=== PATIENT | female | born 1960 | race Caucasian/White ===

== ENCOUNTER 2017-12-29 12:34 | Outpatient (CLI) | payer OTHER | END 2017-12-29 13:00 | disposition home or self-care (01) | LOC: NUCLEAR 12:34 | DX: M25.50 Pain in unspecified joint (principal); Z13.820 Encounter for screening for osteoporosis ==

== ENCOUNTER 2024-05-26 06:10 | Emergency (ER) | payer OTHER ==
[~2024-05-26] VITALS: Ht 162.6 cm; Wt 72.1 kg
[~2024-05-26 06:10] MED LIST: NABUMETONE750 MG PO
[2024-05-26] MEDS ORDERED: KETOROLAC TROMETHAMINE 60 MG VIAL IM STA (06:53)
[2024-05-26] MEDS ORDERED: DEXAMETHASONE SODIUM PHOSPHATE 4 MG/ML VIAL IM STA (06:53)
[2024-05-26] MEDS ORDERED: ACETAMINOPHEN WITH CODEINE 1 UDTAB TABLET PO STA (06:54)
[2024-05-26] MEDS ORDERED: ORPHENADRINE CITRATE 30 MG/ML AMPUL IM STA (06:54)
== END 2024-05-26 07:17 | disposition home or self-care (01) ==
LOC: ER 06:11
DX: M77.8 Other enthesopathies, not elsewhere classified (principal)

== ENCOUNTER 2025-02-14 07:39 | Outpatient (CLI) | payer OTHER | END 2025-02-14 07:56 | disposition home or self-care (01) | LOC: MAMO-SONO 07:39 | PROVIDERS: ATTEND General Practice | DX: E03.9 Hypothyroidism, unspecified (principal); E04.1 Nontoxic single thyroid nodule; R10.9 Unspecified abdominal pain; K29.70 Gastritis, unspecified, without bleeding; N63 Unspecified lump in breast; Z12.31 Encounter for screening mammogram for malignant neoplasm of breast ==

== ENCOUNTER 2025-02-20 11:22 | Emergency (ER) | payer OTHER ==
[~2025-02-20] VITALS: Ht 149.9 cm; Wt 70.3 kg
[2025-02-20] MEDS ORDERED: PEPCID AC20 MG PO (11:44)
[2025-02-20 11:45] VITALS: O2SAT 97
[2025-02-20] MEDS ORDERED: OMEPRAZOLE MAGN20 MG PO (11:45)
[2025-02-20] MEDS ORDERED: LISINOPRIL 10 MG TABLET PO STA (14:21)
[2025-02-20 15:52] LABS: BASO % 0.8 % (0.1-1.2); EOS # 0.21 (0.04-0.54); EOS % 1.5 % (0.7-7.0); LYMPH # 5.87 (1.18-3.74); LYMPH % 42.7 % (19.3-53.1); MEAN PLATELET VOLUME 11.20 fl (9.4-12.4); MONO # 0.75 (0.24-0.82); MONO % 5.5 % (4.7-12.5); NEUT # 6.76 (1.56-6.13); NEUT % 49.2 % (34.0-71.1); RED CELL DISTRIBUTION WIDTH 13.9 % (11.6-14.4)
[2025-02-20 16:12] LABS: GLUCOSE FASTING 98.0 mg/dL (65-100); OSMOLALITY SERUM 287.0 MOSM/KG (275-295)
[2025-02-20 16:15] LABS: BUN CREA RATIO 21.0 (7.0-25.0); CREATININE SERUM 0.84 mg/dL (0.55-1.02); GFR 68.48
[2025-02-20 16:36] VITALS: BP 110/60
== END 2025-02-20 17:02 | disposition home or self-care (01) ==
LOC: ER 11:22
PROVIDERS: General Practice
DX: I10 Essential (primary) hypertension (principal)

== ENCOUNTER 2025-03-14 08:09 | Outpatient (CLI) | payer OTHER ==
[~2025-03-14 08:09] MED LIST changes: +OMEPRAZOLE MAGN20 MG PO; +PEPCID AC20 MG PO
== END 2025-03-14 08:19 | disposition home or self-care (01) ==
LOC: SONOGRAMA 08:09
PROVIDERS: ATTEND Specialist
DX: E78.5 Hyperlipidemia, unspecified (principal); R80.9 Proteinuria, unspecified; I10 Essential (primary) hypertension